=== PATIENT | male | born 2000 | race Caucasian/White ===

== ENCOUNTER 2024-06-21 21:51 | Outpatient (REF) | payer MEDICAID, SELFPAY ==
[2024-06-29 07:49] LABS: Methylphenidate 19 ng/mL (Cutoff: 10); Ritalinic Acid 238 ng/mL (Cutoff: 50)
== END 2024-06-21 21:52 | disposition home or self-care (01) ==
LOC: NCHCN 21:51
PROVIDERS: Visit Provider Student in an Organized Health Care Education/Training Program
DX: F90.9 Attention-deficit hyperactivity disorder, unspecified type (principal)
CPT/HCPCS: 80360